=== PATIENT | female | born 1945 | race Hispanic/Latino ===

== ENCOUNTER → 2017-08-01 | Outpatient (CLI) | payer OTHER ==
[~2017-08-01] MED LIST: CALC-190 PO; FOLI1TAB15 PO; LEVO50TA11 PO; NAPR-1023 PO; PROLIA IM; SUPER B COMPLEX PO; THIAM100TB PO
== END | disposition home or self-care (01) ==
LOC: SHCH 14:07
PROVIDERS: ATTEND Internal Medicine Cardiovascular Disease
DX: I65.23 Occlusion and stenosis of bilateral carotid arteries (principal); I35.0 Nonrheumatic aortic (valve) stenosis
CPT/HCPCS: 93306; 93880

== ENCOUNTER → 2019-11-06 | Outpatient (CLI) | payer OTHER | END | disposition home or self-care (01) | LOC: RAH 09:33 | PROVIDERS: ATTEND Internal Medicine Critical Care Medicine | DX: M50.323 Other cervical disc degeneration at C6-C7 level (principal); M50.322 Other cervical disc degeneration at C5-C6 level | CPT/HCPCS: 72040 ==

== ENCOUNTER → 2022-12-30 | Outpatient (CLI) | payer OTHER | END | disposition home or self-care (01) | LOC: SHCH 12:58 | PROVIDERS: ATTEND Internal Medicine Cardiovascular Disease | DX: I35.0 Nonrheumatic aortic (valve) stenosis (principal); E78.5 Hyperlipidemia, unspecified | CPT/HCPCS: 93306 ==

== ENCOUNTER 2023-03-28 05:43 | Day surgery (SDC) | payer OTHER ==
[2023-03-25 09:55] LABS: BASOPHILS # (AUTO) 0.01 K/uL (0.00-0.20); BASOPHILS % (AUTO) 0.3 % (0.0-5.0); EOSINOPHILS # (AUTO) 0.14 K/uL (0.00-0.70); EOSINOPHILS % (AUTO) 3.6 % (0.0-8.0); HEMATOCRIT 32.4 % (36-48); IMMATURE GRANULOCYTE ABSOLUTE 0.01 K/uL (0-1); LYMPHOCYTES # (AUTO) 1.1 K/uL (1.0-4.8); LYMPHOCYTES % (AUTO) 29.5 % (21.0-51.0); MEAN CORPUSCULAR HEMOGLOBIN 30.1 pg (27.0-33.0); MEAN CORPUSCULAR HGB CONC 33.3 g/dL (32.0-36.0); MEAN CORPUSCULAR VOLUME 90.3 fL (79-99); MONOCYTES # (AUTO) 0.4 K/uL (0.1-1.0); MONOCYTES % (AUTO) 10.3 % (3.0-13.0); NEUTROPHILS # (AUTO) 2.2 K/uL (1.8-7.7); PLATELET COUNT (AUTO) 268 K/uL (130-400); RED BLOOD CELL COUNT(AUTO) 3.59 MIL/uL (4.00-5.50); RED CELL DISTRIBUTION WIDTH 14.2 % (11.0-15.5); WHITE BLOOD COUNT (AUTO) 3.9 K/uL (4.8-10.8)
[2023-03-25 10:01] LABS: CREATININE 0.9 mg/dL (0.5-1.5); POTASSIUM 4.4 mmol/L (3.5-5.1)
[2023-03-25 10:15] LABS: APPEARANCE,URINE CLEAR (CLEAR); BILIRUBIN,URINE NEGATIVE (NEGATIVE); COLOR,URINE COLORLESS (YELLOW); GLUCOSE, URINE (UA) NEGATIVE (NEGATIVE); KETONES,URINE NEGATIVE (NEGATIVE); LEUKOCYTE ESTERASE ,URINE NEGATIVE Leu/uL (NEGATIVE); NITRATE,URINE NEGATIVE (NEGATIVE); OCCULT BLOOD,URINE NEGATIVE (NEGATIVE); PH,URINE 6.5 (5.0-8.0); PROTEIN,URINE NEGATIVE (NEGATIVE); UROBILINOGEN,URINE 0.2 mg/dL (0.2-1.0)
[2023-03-25 10:18] LABS: INR < 0.93 (0.85-1.15); PROTHROMBIN TIME 10.6 SEC (9.6-11.6)
[2023-03-25 10:19] LABS: PARTIAL THROMBOPLASTIN TIME 28.8 SEC (26.3-35.5)
[2023-03-25 10:22] VITALS: BP 151/76; PULSE 52; RESP 18
[2023-03-25 10:25] LABS: B-TYPE NATRIURETIC PEPTIDE 50 pg/mL (0-100)
[2023-03-25 10:30] LABS: ADD UA MICROSCOPIC NO
[~2023-03-28] VITALS: Ht 162.6 cm; Wt 63.5 kg
[2023-03-28] VITALS (20 sets, daily range): BP systolic 111–152; BP diastolic 41–78; PULSE 58–72; RESP 10–22
[~2023-03-28 05:43] MED LIST changes: +ASPI-1005 PO; +BACL10TA PO; -CALC-190 PO; +EZET10TA48 PO; -FOLI1TAB15 PO; +GABA-529 PO; +IBUP-2077 PO; +IRON1CAP32 PO; +KRIL500C PO; -LEVO50TA11 PO; +LEVO75CA5 PO; +LOSA100T59 PO; +METO-408 PO; -NAPR-1023 PO; -PROLIA IM; -SUPER B COMPLEX PO; -THIAM100TB PO; +VITAMIN K PO; +[UNRECOGNIZED DRUG - OTHER] PO
[2023-03-28] MEDS ORDERED: 0.9%NACL 1000ML 1,000 ML IV ONE (06:16)
[2023-03-28] MEDS ORDERED: LIDOCAINE HCL 400MG/20ML VIAL ONE (07:04)
[2023-03-28] MEDS ORDERED: FENTANYL CITRATE PF 50 MCG/1 ML 2ML VIAL ONE (07:04)
[2023-03-28] MEDS ORDERED: IOHEXOL 350 MG/ML 100ML INFUS..BTL IV ONE (07:05)
[2023-03-28] MEDS ORDERED: MIDAZOLAM HCL 1 MG/ML 2ML VIAL ONE (07:05)
[2023-03-28] MEDS ORDERED: NITROGLYCERIN 50MG/D5W 250ML 1 BOT ONE (07:05)
[2023-03-28] MEDS ORDERED: 0.9%NACL 1000ML 1,000 ML IV SCH (08:00)
[2023-03-28] MEDS ORDERED: DEXTROSE 50%-WATER 50 ML DISP.SYRIN IV PRN (08:00)
[2023-03-28] MEDS ORDERED: ACETAMINOPHEN WITH CODEINE 1 TAB TAB PO PRN ×2 (08:00)
[2023-03-28] MEDS ORDERED: GLUCAGON 1MG KIT 1 MG ML IM PRN (08:00)
[2023-03-28] MEDS ORDERED: ATROPINE 1MG SYG IVP ONE (08:26)
[2023-04-07] MEDS ORDERED: [UNRECOGNIZED DRUG - OTHER] PO (14:19)
[2023-04-07] MEDS ORDERED: VITAMIN PO (14:19)
== END 2023-03-28 12:10 | disposition home or self-care (01) ==
LOC: DAH 05:43
PROVIDERS: ATTEND Internal Medicine Cardiovascular Disease
DX: I25.119 Atherosclerotic heart disease of native coronary artery with unspecified angina pectoris (principal); I11.0 Hypertensive heart disease with heart failure; I50.32 Chronic diastolic (congestive) heart failure; M19.90 Unspecified osteoarthritis, unspecified site; E03.9 Hypothyroidism, unspecified; Z79.899 Other long term (current) drug therapy; Z79.01 Long term (current) use of anticoagulants
CPT/HCPCS: 80048; 83880; 85025; 85610; 85730; 81003; 36415; 71045; 93005; 93458; C1894 ×2; J3010; J3490 ×2; J7030; J2250; J1644; Q9967; A4215; A6402; A4657; A4335; A4222; A4221; A4663; A4216; A4606; Q9965; A4223 ×3; A4554; 96360; 96361; 99156; 99157; J0461

== ENCOUNTER 2023-04-07 16:00 | Inpatient (IN) | payer OTHER ==
[~2023-04-07] VITALS: Ht 165.1 cm; Wt 63.5 kg
[2023-04-07 13:40] VITALS: BP 144/66; PULSE 58; RESP 20
[2023-04-07 14:59] LABS: ABG HCO3 23.5 mmol/L (21.0-28.0); ABG OXYGEN SATURATION 96.4 % (95.0-99.0); ABG PCO2 39 mmHg (32-45); ABG PH 7.402 (7.35-7.450); DEVICE COMMENT RAM RN RR; PO2, ARTERIAL BG 84.5 mmHg (83.0-108.0); VENT MODE, BG RA (ROOM AIR)
[~2023-04-07 16:00] MED LIST changes: -IBUP-2077 PO; -KRIL500C PO; +VITAMIN PO; +[UNRECOGNIZED DRUG - OTHER] PO
[2023-04-07 23:23] LABS: ALBUMIN 3.6 g/dL (3.5-5.0); BILIRUBIN,TOTAL 0.4 mg/dL (0.2-1.0); CREATININE 0.9 mg/dL (0.5-1.5); POTASSIUM 3.9 mmol/L (3.5-5.1); TOTAL PROTEIN, SERUM 7.1 g/dL (6.0-8.3)
[2023-04-08] VITALS (50 sets, daily range): BP systolic 96–184; BP diastolic 42–201; PULSE 65–106; RESP 10–19; TEMP 94.4–97.5; O2SAT 100
[2023-04-08 00:51] LABS: HEMOGLOBIN A1C 5.5 % (4.0-6.0)
[2023-04-08 02:15] LABS: INR 0.94 (0.85-1.15); PARTIAL THROMBOPLASTIN TIME 29.2 SEC (26.3-35.5); PROTHROMBIN TIME 10.9 SEC (9.6-11.6)
[2023-04-08 02:31] LABS: BASOPHILS # (AUTO) 0.02 K/uL (0.00-0.20); BASOPHILS % (AUTO) 0.3 % (0.0-5.0); EOSINOPHILS # (AUTO) 0.08 K/uL (0.00-0.70); EOSINOPHILS % (AUTO) 1.4 % (0.0-8.0); HEMATOCRIT 32.7 % (36-48); IMMATURE GRANULOCYTE ABSOLUTE 0.02 K/uL (0-1); LYMPHOCYTES # (AUTO) 1.2 K/uL (1.0-4.8); LYMPHOCYTES % (AUTO) 21.4 % (21.0-51.0); MEAN CORPUSCULAR HEMOGLOBIN 30.3 pg (27.0-33.0); MEAN CORPUSCULAR HGB CONC 32.7 g/dL (32.0-36.0); MEAN CORPUSCULAR VOLUME 92.6 fL (79-99); MONOCYTES # (AUTO) 0.4 K/uL (0.1-1.0); MONOCYTES % (AUTO) 7.4 % (3.0-13.0); NEUTROPHILS % (AUTO) 69.2 % (40.0-77.0); PLATELET COUNT (AUTO) 263 K/uL (130-400); RED BLOOD CELL COUNT(AUTO) 3.53 MIL/uL (4.00-5.50); RED CELL DISTRIBUTION WIDTH 14.7 % (11.0-15.5); WHITE BLOOD COUNT (AUTO) 5.8 K/uL (4.8-10.8)
[2023-04-08] MEDS ORDERED: EPINEPHRINE PF 1MG (1:1,000) 10 MG in 0.9% NACL 250ML 240 ML IV PRN ×2 (09:30→14:00)
[2023-04-08] MEDS ORDERED: NOREPINEPHRINE BITARTRATE 8 MG in 0.9% NACL 250ML 250 ML IV PRN ×2 (09:30→14:00)
[2023-04-08] MEDS ORDERED: AMINOCAPROIC ACID 5,000MG VIAL 15,000 MG in 0.9% NACL 500ML IV.SOLN 420 ML IV PRN (09:30)
[2023-04-08] MEDS ORDERED: 0.9%NACL 1000ML 1,000 ML IV ONE (09:50)
[2023-04-08] MEDS ORDERED: CEFAZOLIN SODIUM 2 GM VIAL ONE (09:50)
[2023-04-08] MEDS ORDERED: EPINEPHRINE PF 1MG (1:1,000) 1 MG/ML AMP ONE (12:03)
[2023-04-08] MEDS ORDERED: PROPOFOL 10 MG/ML 20ML VIAL IV ONE (12:03)
[2023-04-08] MEDS ORDERED: AMINOCAPROIC ACID 5,000MG VIAL ONE (12:03)
[2023-04-08] MEDS ORDERED: HEPARIN 10,000 UNIT/10ML (1,000 UNIT/ML) VIAL ONE (12:03)
[2023-04-08] MEDS ORDERED: NOREPINEPHRINE BITARTRATE 1 MG/1 ML ML IV ONE (12:03)
[2023-04-08] MEDS ORDERED: LIDOCAINE PF 100MG/5ML (2%) SYRINGE 5ML ONE (12:03)
[2023-04-08] MEDS ORDERED: PROTAMINE SULFATE 10 MG/ML 25ML VIAL IV ONE (12:03)
[2023-04-08] MEDS ORDERED: ESMOLOL HCL 10 MG/ML 10 ML VIAL ONE (12:03)
[2023-04-08] MEDS ORDERED: MIDAZOLAM HCL 1 MG/ML 2ML VIAL ONE ×2 (12:04→17:02)
[2023-04-08] MEDS ORDERED: ROCURONIUM 10MG/1ML SYR 10 MG/ML ML ONE (12:04)
[2023-04-08] MEDS ORDERED: KETAMINE 50MG/ML SYRINGE 50 MG/ML DISP.SYRIN ONE ×2 (12:04→14:15)
[2023-04-08] MEDS ORDERED: AMIODARONE 150MG VIAL IV ONE (13:02)
[2023-04-08] MEDS ORDERED: EPINEPHRINE 1MG/10ML(1:10,000) 0.1 MG/ML SYG IVP ONE (13:02)
[2023-04-08] MEDS ORDERED: FENTANYL CITRATE PF 50 MCG/1 ML 5ML AMP IV ONE ×3 (13:21→15:05)
[2023-04-08] MEDS ORDERED: SODIUM BICARB 8.4% 50ML SYRINGE ONE ×2 (13:23→13:49)
[2023-04-08 13:24] LABS: ABG BASE EXCESS -5.1 mmol/L (-2.0-3.0); ABG HCO3 21.8 mmol/L (21.0-28.0); ABG OXYGEN SATURATION 99.7 % (95.0-99.0); ABG PCO2 48 mmHg (32-45); ABG PH 7.273 (7.35-7.450); CARBON MONOXIDE 0.3; DEVICE COMMENT 1; HHb 0.3; PO2, ARTERIAL BG 467.6 mmHg (83.0-108.0)
[2023-04-08] MEDS ORDERED: CEFAZOLIN SODIUM 1 GM VIAL ONE (13:39)
[2023-04-08] MEDS ORDERED: PAPAVERINE HCL 30 MG/ML 2ML VIAL ONE (13:39)
[2023-04-08] MEDS ORDERED: FENTANYL CITRATE PF 50 MCG/1 ML 2ML VIAL ONE (13:59)
[2023-04-08] MEDS ORDERED: AMINOCAPROIC ACID 5,000MG VIAL 15,000 MG in 0.9% NACL 250ML 250 ML IV SCH (14:00)
[2023-04-08] MEDS ORDERED: ALBUMIN (HUMAN) 5% 250 ML IV PRN (14:00)
[2023-04-08] MEDS ORDERED: LACTULOSE 20 GM/30 ML UDCUP PO PRN (14:00)
[2023-04-08] MEDS ORDERED: MAGNESIUM HYDROXIDE 30 ML/UDCUP PO PRN (14:00)
[2023-04-08] MEDS ORDERED: 0.9%NACL 10ML VIAL IVP PRN (14:00)
[2023-04-08] MEDS ORDERED: INSULIN REGULAR, HUMAN 3ML 100 UNIT in 0.9%NACL 100ML 99 ML IV SCH ×2 (14:00)
[2023-04-08] MEDS ORDERED: MORPHINE 4 MG SYG IV PRN (14:00)
[2023-04-08] MEDS ORDERED: 0.9%NACL 1000ML 1,000 ML IV SCH (14:00)
[2023-04-08] MEDS ORDERED: TRAMADOL HCL 50 MG TABLET PO PRN ×2 (14:00)
[2023-04-08] MEDS ORDERED: PROPOFOL 1000 MG/100 ML 100 ML IV PRN (14:00)
[2023-04-08] MEDS ORDERED: 0.9% NACL 500ML IV.SOLN 500 ML IV SCH (14:00)
[2023-04-08] MEDS ORDERED: MORPHINE 2 MG SYG IV PRN (14:00)
[2023-04-08] MEDS ORDERED: NITROGLYCERIN 50MG/D5W 250ML 250 BOT IV SCH (14:00)
[2023-04-08] MEDS ORDERED: GLUCAGON 1MG KIT 1 MG ML IM PRN (14:00)
[2023-04-08] MEDS ORDERED: POTASSIUM PHOS 15 mMOL+NS250ML 250 ML IV PRN (14:00)
[2023-04-08] MEDS ORDERED: ACETAMINOPHEN 650 MG SUPPOSITORY RC PRN (14:00)
[2023-04-08] MEDS ORDERED: DEXTROSE 50%-WATER 50 ML DISP.SYRIN IV PRN (14:00)
[2023-04-08 15:00] LABS: ABG BASE EXCESS -0.3 mmol/L (-2.0-3.0); ABG HCO3 23.4 mmol/L (21.0-28.0); ABG OXYGEN SATURATION 99.5 % (95.0-99.0); ABG PCO2 34 mmHg (32-45); ABG PH 7.451 (7.35-7.450); CARBON MONOXIDE 0.3; DEVICE COMMENT 4; HHb 0.5; PO2, ARTERIAL BG 310.7 mmHg (83.0-108.0)
[2023-04-08] MEDS ORDERED: POTASSIUM CHLORIDE 20MEQ/100ML 100 ML IV ONE (15:04)
[2023-04-08 15:28] LABS: ABG BASE EXCESS -1.9 mmol/L (-2.0-3.0); ABG OXYGEN SATURATION 99.1 % (95.0-99.0); ABG PCO2 40 mmHg (32-45); ABG PH 7.379 (7.35-7.450); CARBON MONOXIDE 0; HHb 0.9; PO2, ARTERIAL BG 286.4 mmHg (83.0-108.0); VENT MODE, BG SIMV PS 10 (ROOM AIR)
[2023-04-08] MEDS: POTASSIUM CHLORIDE 20MEQ/100ML 100 ML IV PRN ×5 (15:38→23:50)
[2023-04-08 15:39] LABS: HEMATOCRIT 28.3 % (36-48); MEAN CORPUSCULAR HEMOGLOBIN 30.4 pg (27.0-33.0); MEAN CORPUSCULAR HGB CONC 33.6 g/dL (32.0-36.0); MEAN CORPUSCULAR VOLUME 90.7 fL (79-99); RED BLOOD CELL COUNT(AUTO) 3.12 MIL/uL (4.00-5.50); RED CELL DISTRIBUTION WIDTH 14.6 % (11.0-15.5); WHITE BLOOD COUNT (AUTO) 19.8 K/uL (4.8-10.8)
[2023-04-08] MEDS: SODIUM BICARB 50MEQ 50ML VIAL IV PRN ×4 (15:39→21:30)
[2023-04-08 15:52] LABS: CREATININE 0.7 mg/dL (0.5-1.5); MAGNESIUM 1.4 mg/dL (1.80-2.40); PHOSPHORUS 3.6 mg/dL (2.5-4.9); POTASSIUM 3.2 mmol/L (3.5-5.1)
[2023-04-08 15:53] LABS: ABG BASE EXCESS -0.5 mmol/L (-2.0-3.0); ABG HCO3 22.6 mmol/L (21.0-28.0); ABG OXYGEN SATURATION 99.1 % (95.0-99.0); ABG PCO2 32 mmHg (32-45); ABG PH 7.472 (7.35-7.450); CARBON MONOXIDE 0.3; HHb 0.9; PO2, ARTERIAL BG 355.3 mmHg (83.0-108.0); VENT MODE, BG SIMV (ROOM AIR)
[2023-04-08 15:59] LABS: INR 1.06 (0.85-1.15); PROTHROMBIN TIME 12.3 SEC (9.6-11.6)
[2023-04-08] MEDS ORDERED: AMIODARONE 900MG VIAL 540 MG in DEXTROSE 5%-WATER 300 ML IV STA (16:00)
[2023-04-08] MEDS ORDERED: AMIODARONE 900MG VIAL 150 MG in DEXTROSE 5%-WATER 100 ML IV SCH (16:00)
[2023-04-08] MEDS ORDERED: ASPIRIN 81MG CHEW TAB NG ONE (16:00)
[2023-04-08] MEDS ORDERED: AMIODARONE 900MG VIAL 360 MG in DEXTROSE 5%-WATER 200 ML IV SCH (16:00)
[2023-04-08 16:01] LABS: PARTIAL THROMBOPLASTIN TIME 24.6 SEC (26.3-35.5)
[2023-04-08] MEDS: MAGNESIUM 2GM PREMIX 50ML 50 ML IV PRN ×2 (16:31→23:50)
[2023-04-08 16:33] LABS: HEMATOCRIT 24.7 % (36-48); MEAN CORPUSCULAR HEMOGLOBIN 30.7 pg (27.0-33.0); MEAN CORPUSCULAR HGB CONC 33.6 g/dL (32.0-36.0); MEAN CORPUSCULAR VOLUME 91.5 fL (79-99); RED BLOOD CELL COUNT(AUTO) 2.7 MIL/uL (4.00-5.50); RED CELL DISTRIBUTION WIDTH 14.7 % (11.0-15.5); WHITE BLOOD COUNT (AUTO) 17.7 K/uL (4.8-10.8)
[2023-04-08 16:44] LABS: INR 1.13 (0.85-1.15)
[2023-04-08 16:45] LABS: PARTIAL THROMBOPLASTIN TIME 25.6 SEC (26.3-35.5)
[2023-04-08 16:48] LABS: POTASSIUM 3.8 mmol/L (3.5-5.1)
[2023-04-08 16:49] LABS: ABG BASE EXCESS -5.5 mmol/L (-2.0-3.0); ABG HCO3 19.6 mmol/L (21.0-28.0); ABG OXYGEN SATURATION 98.4 % (95.0-99.0); ABG PCO2 37 mmHg (32-45); ABG PH 7.345 (7.35-7.450); CARBON MONOXIDE 0.1; HHb 1.6; PO2, ARTERIAL BG 230.3 mmHg (83.0-108.0)
[2023-04-08 16:53] LABS: ALBUMIN 2.3 g/dL (3.5-5.0); BILIRUBIN,TOTAL 0.5 mg/dL (0.2-1.0); TOTAL PROTEIN, SERUM 4.7 g/dL (6.0-8.3)
[2023-04-08] MEDS: LIDOCAINE 2G/250ML 250 ML IV SCH (17:02)
[2023-04-08] MEDS ORDERED: MIDAZOLAM HCL 1 MG/ML 2ML VIAL IVP ONE (17:30)
[2023-04-08 18:32] LABS: ABG BASE EXCESS 1.2 mmol/L (-2.0-3.0); ABG HCO3 25.3 mmol/L (21.0-28.0); ABG OXYGEN SATURATION 98.7 % (95.0-99.0); ABG PCO2 38 mmHg (32-45); ABG PH 7.443 (7.35-7.450); CARBON MONOXIDE 0.3; HHb 1.3; PO2, ARTERIAL BG 260.3 mmHg (83.0-108.0); VENT MODE, BG AC (ROOM AIR)
[2023-04-08 19:43] LABS: ABG BASE EXCESS 0.5 mmol/L (-2.0-3.0); ABG HCO3 24.8 mmol/L (21.0-28.0); ABG OXYGEN SATURATION 99.1 % (95.0-99.0); ABG PCO2 39 mmHg (32-45); ABG PH 7.425 (7.35-7.450); CARBON MONOXIDE 0.3; HHb 0.9; PO2, ARTERIAL BG 425.3 mmHg (83.0-108.0); VENT MODE, BG AC (ROOM AIR)
[2023-04-08] MEDS: CEFAZOLIN SODIUM 2 GM VIAL IVPB SCH (19:44)
[2023-04-08] MEDS: DEXMEDETOMIDINE 400MCG/NS100ML IV SCH (19:45)
[2023-04-08] MEDS: ATORVASTATIN 40 MG TABLET PO SCH (20:54)
[2023-04-08] MEDS: DOCUSATE SODIUM 100 MG CAP PO SCH (20:54)
[2023-04-08] MEDS: FAMOTIDINE 20MG VIAL IV SCH (20:54)
[2023-04-08 21:04] LABS: ABG BASE EXCESS -1.4 mmol/L (-2.0-3.0); ABG HCO3 23.4 mmol/L (21.0-28.0); ABG OXYGEN SATURATION 98.8 % (95.0-99.0); ABG PCO2 39 mmHg (32-45); ABG PH 7.393 (7.35-7.450); CARBON MONOXIDE 0.3; HHb 1.2; PO2, ARTERIAL BG 243.9 mmHg (83.0-108.0); VENT MODE, BG ACVC (ROOM AIR)
[2023-04-08 23:23] LABS: ABG BASE EXCESS 3.8 mmol/L (-2.0-3.0); ABG HCO3 27.5 mmol/L (21.0-28.0); ABG OXYGEN SATURATION 97.8 % (95.0-99.0); ABG PCO2 38 mmHg (32-45); ABG PH 7.479 (7.35-7.450); CARBON MONOXIDE 0.3; HHb 2.2; PO2, ARTERIAL BG 118.6 mmHg (83.0-108.0); VENT MODE, BG AC (ROOM AIR)
[2023-04-09] VITALS (118 sets, daily range): BP systolic 94–177; BP diastolic 34–93; PULSE 55–75; RESP 8–42; TEMP 97.7–98.1; O2SAT 88–100
[2023-04-09] MEDS: DEXMEDETOMIDINE 400MCG/NS100ML IV SCH ×2 (00:06→18:47)
[2023-04-09 02:27] LABS: ABG BASE EXCESS 5.2 mmol/L (-2.0-3.0); ABG HCO3 27.6 mmol/L (21.0-28.0); ABG OXYGEN SATURATION 98.2 % (95.0-99.0); ABG PCO2 33 mmHg (32-45); ABG PH 7.545 (7.35-7.450); CARBON MONOXIDE 0.3; HHb 1.8; PO2, ARTERIAL BG 154.6 mmHg (83.0-108.0); VENT MODE, BG ACVC (ROOM AIR)
[2023-04-09] MEDS: LIDOCAINE 2G/250ML 250 ML IV SCH ×2 (03:15→20:14)
[2023-04-09] MEDS: CEFAZOLIN SODIUM 2 GM VIAL IVPB SCH ×2 (03:16→12:29)
[2023-04-09 03:27] LABS: HEMATOCRIT 27.1 % (36-48); MEAN CORPUSCULAR HEMOGLOBIN 30.8 pg (27.0-33.0); MEAN CORPUSCULAR HGB CONC 33.9 g/dL (32.0-36.0); MEAN CORPUSCULAR VOLUME 90.6 fL (79-99); RED BLOOD CELL COUNT(AUTO) 2.99 MIL/uL (4.00-5.50); RED CELL DISTRIBUTION WIDTH 14.6 % (11.0-15.5); WHITE BLOOD COUNT (AUTO) 14.8 K/uL (4.8-10.8)
[2023-04-09 03:40] LABS: INR 0.99 (0.85-1.15); PROTHROMBIN TIME 11.5 SEC (9.6-11.6)
[2023-04-09 03:41] LABS: PARTIAL THROMBOPLASTIN TIME 24.2 SEC (26.3-35.5)
[2023-04-09 04:07] LABS: ABG BASE EXCESS 4.3 mmol/L (-2.0-3.0); ABG HCO3 26.9 mmol/L (21.0-28.0); ABG OXYGEN SATURATION 98.2 % (95.0-99.0); ABG PCO2 33 mmHg (32-45); ABG PH 7.533 (7.35-7.450); CARBON MONOXIDE 0.3; HHb 1.8; PO2, ARTERIAL BG 148.8 mmHg (83.0-108.0); VENT MODE, BG ACVC (ROOM AIR)
[2023-04-09 04:14] LABS: MAGNESIUM 2.6 mg/dL (1.80-2.40); POTASSIUM 4.3 mmol/L (3.5-5.1)
[2023-04-09 04:39] LABS: PHOSPHORUS 0.9 mg/dL (2.5-4.9)
[2023-04-09] MEDS: CALCIUM GLUC 1GM 1 GM in 0.9%NACL 50ML 50 ML IV PRN ×2 (04:52→16:36)
[2023-04-09 05:16] LABS: ABG BASE EXCESS 1.4 mmol/L (-2.0-3.0); ABG OXYGEN SATURATION 98.1 % (95.0-99.0); ABG PCO2 31 mmHg (32-45); ABG PH 7.511 (7.35-7.450); CARBON MONOXIDE 0.2; HHb 1.9; PO2, ARTERIAL BG 127.8 mmHg (83.0-108.0); VENT MODE, BG AC (ROOM AIR)
[2023-04-09] MEDS: LEVOTHYROXINE 75 MCG TABLET PO SCH (07:24)
[2023-04-09] MEDS ORDERED: NON-FORMULARY MEDICATION 1 EACH (Levothyroxine Sodium (Levothyroxine) 75 MCG) PO SCH (09:00)
[2023-04-09] MEDS: FAMOTIDINE 20MG VIAL IV SCH ×2 (09:20→20:14)
[2023-04-09] MEDS: FUROSEMIDE 20MG VIAL IV SCH ×2 (09:20→20:15)
[2023-04-09] MEDS: DOCUSATE SODIUM 100 MG CAP PO SCH ×2 (09:20→20:10)
[2023-04-09] MEDS: ENOXAPARIN SODIUM 30 MG/0.3 ML SQ SCH (09:20)
[2023-04-09] MEDS: EZETIMIBE 10 MG TAB PO SCH (09:21)
[2023-04-09] MEDS: ASPIRIN 81MG CHEW TAB PO SCH (09:21)
[2023-04-09 12:18] LABS: ABG BASE EXCESS 1.8 mmol/L (-2.0-3.0); ABG HCO3 25.4 mmol/L (21.0-28.0); ABG OXYGEN SATURATION 94.6 % (95.0-99.0); ABG PCO2 36 mmHg (32-45); ABG PH 7.467 (7.35-7.450); CARBON MONOXIDE 0.3; HHb 5.4; PO2, ARTERIAL BG 76.6 mmHg (83.0-108.0); VENT MODE, BG SIMV PS 10 (ROOM AIR)
[2023-04-09] MEDS ORDERED: CEFAZOLIN SODIUM 2 GM VIAL ONE (12:28)
[2023-04-09] MEDS: POTASSIUM CHLORIDE 20MEQ/100ML 100 ML IV PRN (13:12)
[2023-04-09 13:59] LABS: ABG BASE EXCESS 3.5 mmol/L (-2.0-3.0); ABG HCO3 27.3 mmol/L (21.0-28.0); ABG OXYGEN SATURATION 92.8 % (95.0-99.0); ABG PCO2 38 mmHg (32-45); ABG PH 7.474 (7.35-7.450); CARBON MONOXIDE 0.2; HHb 7.1; PO2, ARTERIAL BG 68.2 mmHg (83.0-108.0); VENT MODE, BG SIMV PS 10 (ROOM AIR)
[2023-04-09 16:08] LABS: ABG BASE EXCESS 0.1 mmol/L (-2.0-3.0); ABG HCO3 24.3 mmol/L (21.0-28.0); ABG OXYGEN SATURATION 93.5 % (95.0-99.0); ABG PCO2 38 mmHg (32-45); ABG PH 7.426 (7.35-7.450); CARBON MONOXIDE 0.7; HHb 6.4; PO2, ARTERIAL BG 73.6 mmHg (83.0-108.0); VENT MODE, BG BIPAP 10-5 RR15 (ROOM AIR)
[2023-04-09] MEDS: ATORVASTATIN 40 MG TABLET PO SCH (20:10)
[2023-04-10] VITALS (84 sets, daily range): BP systolic 91–191; BP diastolic 37–97; PULSE 64–110; RESP 4–44; TEMP 98–98.7; O2SAT 93–99
[2023-04-10 05:43] LABS: HEMATOCRIT 27.5 % (36-48); MEAN CORPUSCULAR HGB CONC 33.8 g/dL (32.0-36.0); MEAN CORPUSCULAR VOLUME 91.7 fL (79-99); PLATELET COUNT (AUTO) 99 K/uL (130-400); RED CELL DISTRIBUTION WIDTH 15.6 % (11.0-15.5); WHITE BLOOD COUNT (AUTO) 15.4 K/uL (4.8-10.8)
[2023-04-10] MEDS: DEXMEDETOMIDINE 400MCG/NS100ML IV SCH ×2 (05:54→06:55)
[2023-04-10] MEDS: LEVOTHYROXINE 75 MCG TABLET PO SCH (05:55)
[2023-04-10] MEDS ORDERED: CALCIUM GLUC 1GM/10ML VIAL ONE (05:58)
[2023-04-10 06:14] LABS: CREATININE 1.3 mg/dL (0.5-1.5); PHOSPHORUS 4.5 mg/dL (2.5-4.9); POTASSIUM 3.8 mmol/L (3.5-5.1)
[2023-04-10] MEDS: POTASSIUM CHLORIDE 20MEQ/100ML 100 ML IV PRN (06:33)
[2023-04-10] MEDS: INSULIN HUMULIN R 100 UNIT/ML 3ML SQ SCH ×4 (07:30→20:25)
[2023-04-10] MEDS: METOPROLOL TARTRATE 25 MG TAB PO SCH ×2 (09:00→20:25)
[2023-04-10] MEDS: FAMOTIDINE 20MG VIAL IV SCH ×2 (09:08→20:25)
[2023-04-10] MEDS: EZETIMIBE 10 MG TAB PO SCH (09:09)
[2023-04-10] MEDS: DOCUSATE SODIUM 100 MG CAP PO SCH ×2 (09:09→20:25)
[2023-04-10] MEDS: ASPIRIN 81MG CHEW TAB PO SCH (09:09)
[2023-04-10] MEDS: ENOXAPARIN SODIUM 30 MG/0.3 ML SQ SCH (09:09)
[2023-04-10 11:38] LABS: BASOPHILS # (AUTO) 0.03 K/uL (0.00-0.20); BASOPHILS % (AUTO) 0.2 % (0.0-5.0); IMMATURE GRANULOCYTE ABSOLUTE 0.05 K/uL (0-1); LYMPHOCYTES # (AUTO) 1.4 K/uL (1.0-4.8); LYMPHOCYTES % (AUTO) 8.9 % (21.0-51.0); MONOCYTES # (AUTO) 0.9 K/uL (0.1-1.0); MONOCYTES % (AUTO) 5.6 % (3.0-13.0)
[2023-04-10 12:11] LABS: BAND NEUTROPHILS % (MANUAL) 35 % (0-2); LYMPHOCYTES % (MANUAL) 10 % (22-44); MAN.DIFF COMMENT-IMPRESSION MANUAL DIFFERENTIAL; MONOCYTES % (MANUAL) 2 % (2-9); PLATELET MORPHOLOGY COMMENT DECREASED; SEGMENTED NEUTROPHILS % 53 % (40-70); TOTAL CELLS COUNTED 100; WBC MORPHOLOGY CONSISTENT
[2023-04-10] MEDS: FUROSEMIDE 20 MG TABLET PO SCH (16:59)
[2023-04-10] MEDS: ATORVASTATIN 40 MG TABLET PO SCH (20:25)
[2023-04-11] VITALS (110 sets, daily range): BP systolic 40–175; BP diastolic 38–93; PULSE 62–113; RESP 13–100; TEMP 98.5–99.1; O2SAT 92–100
[2023-04-11 00:28] LABS: ABG BASE EXCESS 3.1 mmol/L (-2.0-3.0); ABG HCO3 25.6 mmol/L (21.0-28.0); ABG OXYGEN SATURATION 87.8 % (95.0-99.0); ABG PCO2 31 mmHg (32-45); CARBON MONOXIDE 0.4; HHb 12.1; PO2, ARTERIAL BG 50.8 mmHg (83.0-108.0); VENT MODE, BG AM (ROOM AIR)
[2023-04-11] MEDS: POTASSIUM CHLORIDE 20MEQ/100ML 100 ML IV PRN ×6 (00:37→23:33)
[2023-04-11 01:57] LABS: ABG BASE EXCESS 1.7 mmol/L (-2.0-3.0); ABG OXYGEN SATURATION 94.2 % (95.0-99.0); ABG PCO2 30 mmHg (32-45); ABG PH 7.529 (7.35-7.450); CARBON MONOXIDE 0.3; HHb 5.8; PO2, ARTERIAL BG 72.5 mmHg (83.0-108.0)
[2023-04-11 05:21] LABS: HEMATOCRIT 26.7 % (36-48); MEAN CORPUSCULAR HEMOGLOBIN 30.9 pg (27.0-33.0); MEAN CORPUSCULAR VOLUME 93.7 fL (79-99); RED BLOOD CELL COUNT(AUTO) 2.85 MIL/uL (4.00-5.50); WHITE BLOOD COUNT (AUTO) 13.8 K/uL (4.8-10.8)
[2023-04-11] MEDS: INSULIN HUMULIN R 100 UNIT/ML 3ML SQ SCH ×4 (05:25→23:30)
[2023-04-11 05:43] LABS: POTASSIUM 3.5 mmol/L (3.5-5.1)
[2023-04-11] MEDS: LEVOTHYROXINE 75 MCG TABLET PO SCH (05:55)
[2023-04-11] MEDS ORDERED: LIDOCAINE HCL 400MG/20ML VIAL ONE (07:00)
[2023-04-11] MEDS ORDERED: HEPARIN 10,000 UNIT/10ML (1,000 UNIT/ML) VIAL ONE (07:01)
[2023-04-11] MEDS ORDERED: IOHEXOL 350 MG/ML 100ML INFUS..BTL IV ONE (07:01)
[2023-04-11] MEDS ORDERED: NITROGLYCERIN 50MG/D5W 250ML 0 BOT ONE (07:01)
[2023-04-11] MEDS ORDERED: BIVALIRUDIN 250 MG/VIAL IV ONE (07:01)
[2023-04-11] MEDS ORDERED: METOPROLOL TARTRATE 1 MG/ML 5ML VIAL IV ONE ×2 (07:23→07:27)
[2023-04-11] MEDS: ENOXAPARIN SODIUM 30 MG/0.3 ML SQ SCH (08:23)
[2023-04-11] MEDS ORDERED: AMIODARONE 150MG VIAL IV ONE (08:30)
[2023-04-11] MEDS ORDERED: AMIODARONE 150MG VIAL 300 MG in DEXTROSE 5%-WATER 100 ML IV ONE (09:00)
[2023-04-11] MEDS: FUROSEMIDE 20 MG TABLET PO SCH ×2 (09:28→16:03)
[2023-04-11] MEDS: EZETIMIBE 10 MG TAB PO SCH (09:28)
[2023-04-11] MEDS: METOPROLOL TARTRATE 50 MG TAB PO SCH ×2 (09:28→20:15)
[2023-04-11] MEDS: DOCUSATE SODIUM 100 MG CAP PO SCH ×2 (09:28→20:15)
[2023-04-11] MEDS: FAMOTIDINE 20MG VIAL IV SCH ×2 (09:28→20:15)
[2023-04-11] MEDS: ASPIRIN 81MG CHEW TAB PO SCH (09:29)
[2023-04-11] MEDS ORDERED: FUROSEMIDE 40MG VIAL IV ONE (11:00)
[2023-04-11] MEDS: ATORVASTATIN 40 MG TABLET PO SCH (20:15)
[2023-04-11] MEDS: MAGNESIUM 2GM PREMIX 50ML 50 ML IV PRN (20:15)
[2023-04-11] MEDS: AMIODARONE 200 MG TABLET PO SCH (20:15)
[2023-04-11 23:28] LABS: POTASSIUM 2.3 mmol/L (3.5-5.1)
[2023-04-12] VITALS (91 sets, daily range): BP systolic 97–177; BP diastolic 38–90; PULSE 55–85; RESP 12–36; TEMP 100; O2SAT 95–99
[2023-04-12] MEDS: POTASSIUM CHLORIDE 20MEQ/100ML 100 ML IV PRN ×5 (00:30→13:17)
[2023-04-12 01:32] LABS: MAGNESIUM 2.3 mg/dL (1.80-2.40); POTASSIUM 3.8 mmol/L (3.5-5.1)
[2023-04-12 03:36] LABS: HEMATOCRIT 23.6 % (36-48); MEAN CORPUSCULAR HEMOGLOBIN 31.3 pg (27.0-33.0); MEAN CORPUSCULAR HGB CONC 33.9 g/dL (32.0-36.0); MEAN CORPUSCULAR VOLUME 92.2 fL (79-99); NUCLEATED RED BLOOD CELLS 0.2 % (0.0-0.19); RED BLOOD CELL COUNT(AUTO) 2.56 MIL/uL (4.00-5.50); RED CELL DISTRIBUTION WIDTH 15.9 % (11.0-15.5); WHITE BLOOD COUNT (AUTO) 16.1 K/uL (4.8-10.8)
[2023-04-12 03:48] LABS: POTASSIUM 3.8 mmol/L (3.5-5.1)
[2023-04-12 04:43] LABS: ABG BASE EXCESS 1.8 mmol/L (-2.0-3.0); ABG HCO3 25.2 mmol/L (21.0-28.0); ABG OXYGEN SATURATION 95.9 % (95.0-99.0); ABG PCO2 36 mmHg (32-45); ABG PH 7.463 (7.35-7.450); DEVICE COMMENT ALINE; PO2, ARTERIAL BG 75.6 mmHg (83.0-108.0); VENT MODE, BG BIPAP 10 5 (ROOM AIR)
[2023-04-12] MEDS: INSULIN HUMULIN R 100 UNIT/ML 3ML SQ SCH ×4 (06:09→20:19)
[2023-04-12] MEDS: LEVOTHYROXINE 75 MCG TABLET PO SCH (06:09)
[2023-04-12] MEDS: FUROSEMIDE 20 MG TABLET PO SCH ×2 (08:00→16:49)
[2023-04-12] MEDS: AMIODARONE 200 MG TABLET PO SCH ×2 (08:01→20:18)
[2023-04-12] MEDS: DOCUSATE SODIUM 100 MG CAP PO SCH ×2 (08:01→20:18)
[2023-04-12] MEDS: FAMOTIDINE 20MG VIAL IV SCH ×2 (08:01→20:18)
[2023-04-12] MEDS: EZETIMIBE 10 MG TAB PO SCH (08:01)
[2023-04-12] MEDS: ASPIRIN 81MG CHEW TAB PO SCH (08:01)
[2023-04-12] MEDS: ENOXAPARIN SODIUM 30 MG/0.3 ML SQ SCH (08:02)
[2023-04-12] MEDS: METOPROLOL TARTRATE 50 MG TAB PO SCH ×2 (08:04→21:53)
[2023-04-12] MEDS: LOSARTAN 25 MG TABLET PO SCH ×2 (08:04→20:18)
[2023-04-12] MEDS: ACETAMINOPHEN 325 MG TAB PO PRN (08:04)
[2023-04-12] MEDS: ONDANSETRON 4MG INJ IV PRN (11:06)
[2023-04-12] MEDS: ATORVASTATIN 40 MG TABLET PO SCH (20:18)
[2023-04-13] VITALS (32 sets, daily range): BP systolic 94–141; BP diastolic 37–67; PULSE 56–97; RESP 8–26; O2SAT 94–97
[2023-04-13 04:13] LABS: HEMATOCRIT 25.4 % (36-48); MEAN CORPUSCULAR HEMOGLOBIN 30.7 pg (27.0-33.0); MEAN CORPUSCULAR HGB CONC 32.3 g/dL (32.0-36.0); MEAN CORPUSCULAR VOLUME 95.1 fL (79-99); NUCLEATED RED BLOOD CELLS 0.3 % (0.0-0.19); RED BLOOD CELL COUNT(AUTO) 2.67 MIL/uL (4.00-5.50); RED CELL DISTRIBUTION WIDTH 15.2 % (11.0-15.5); WHITE BLOOD COUNT (AUTO) 11.6 K/uL (4.8-10.8)
[2023-04-13 04:28] LABS: CREATININE 1.1 mg/dL (0.5-1.5)
[2023-04-13] MEDS: POTASSIUM CHLORIDE 20MEQ/100ML 100 ML IV PRN (04:47)
[2023-04-13] MEDS: LEVOTHYROXINE 75 MCG TABLET PO SCH (06:07)
[2023-04-13] MEDS: INSULIN HUMULIN R 100 UNIT/ML 3ML SQ SCH ×4 (06:49→19:52)
[2023-04-13] MEDS: ASPIRIN 81MG CHEW TAB PO SCH (08:01)
[2023-04-13] MEDS: AMIODARONE 200 MG TABLET PO SCH ×2 (08:01→19:47)
[2023-04-13] MEDS: DOCUSATE SODIUM 100 MG CAP PO SCH (08:01)
[2023-04-13] MEDS: FUROSEMIDE 20 MG TABLET PO SCH ×2 (08:02→17:29)
[2023-04-13] MEDS: EZETIMIBE 10 MG TAB PO SCH (08:02)
[2023-04-13] MEDS: FAMOTIDINE 20MG TAB PO SCH (08:02)
[2023-04-13] MEDS: ENOXAPARIN SODIUM 30 MG/0.3 ML SQ SCH (08:03)
[2023-04-13] MEDS: LOSARTAN 25 MG TABLET PO SCH ×2 (08:43→19:47)
[2023-04-13] MEDS: METOPROLOL TARTRATE 50 MG TAB PO SCH ×2 (09:00→19:47)
[2023-04-13] MEDS ORDERED: FUROSEMIDE 40MG VIAL IV ONE (10:00)
[2023-04-13] MEDS: ATORVASTATIN 40 MG TABLET PO SCH (19:47)
[2023-04-13] MEDS: ACETAMINOPHEN 325 MG TAB PO PRN (19:50)
[2023-04-14] VITALS (13 sets, daily range): BP systolic 93–148; BP diastolic 46–68; PULSE 57–75; RESP 16–20; O2SAT 91–97
[2023-04-14] MEDS: LEVOTHYROXINE 75 MCG TABLET PO SCH (05:00)
[2023-04-14] MEDS: INSULIN HUMULIN R 100 UNIT/ML 3ML SQ SCH ×4 (05:44→21:00)
[2023-04-14] MEDS: ENOXAPARIN SODIUM 30 MG/0.3 ML SQ SCH (09:00)
[2023-04-14] MEDS: FUROSEMIDE 20 MG TABLET PO SCH ×2 (09:00→16:33)
[2023-04-14] MEDS: AMIODARONE 200 MG TABLET PO SCH ×2 (09:00→22:02)
[2023-04-14] MEDS: LOSARTAN 25 MG TABLET PO SCH ×2 (09:01→22:02)
[2023-04-14] MEDS: ACETAMINOPHEN 325 MG TAB PO PRN ×2 (09:02→16:32)
[2023-04-14] MEDS: METOPROLOL TARTRATE 50 MG TAB PO SCH ×2 (09:02→22:09)
[2023-04-14] MEDS: EZETIMIBE 10 MG TAB PO SCH (09:02)
[2023-04-14] MEDS: FAMOTIDINE 20MG TAB PO SCH (09:02)
[2023-04-14] MEDS: ASPIRIN 81MG CHEW TAB PO SCH (09:02)
[2023-04-14] MEDS: ATORVASTATIN 40 MG TABLET PO SCH (22:02)
[2023-04-14] MEDS: ACETAMINOPHEN 500 MG TABLET PO SCH (22:04)
[2023-04-14] MEDS: ALPRAZOLAM 1 MG TAB PO SCH (22:04)
[2023-04-14] MEDS: BALSAM PERU/CASTOR OIL 60 GM TUBE TP SCH (22:08)
[2023-04-15] VITALS (10 sets, daily range): BP systolic 92–127; BP diastolic 43–54; PULSE 58–70; RESP 18–20; O2SAT 92–99
[2023-04-15] MEDS: INSULIN HUMULIN R 100 UNIT/ML 3ML SQ SCH ×4 (05:48→20:43)
[2023-04-15] MEDS: LEVOTHYROXINE 75 MCG TABLET PO SCH (06:53)
[2023-04-15] MEDS: AMIODARONE 200 MG TABLET PO SCH ×2 (09:41→20:51)
[2023-04-15] MEDS: EZETIMIBE 10 MG TAB PO SCH (09:41)
[2023-04-15] MEDS: ALPRAZOLAM 1 MG TAB PO SCH (09:41)
[2023-04-15] MEDS: FAMOTIDINE 20MG TAB PO SCH (09:41)
[2023-04-15] MEDS: CLOPIDOGREL 75MG TAB PO SCH (09:42)
[2023-04-15] MEDS: FUROSEMIDE 20 MG TABLET PO SCH ×2 (09:42→16:57)
[2023-04-15] MEDS: ACETAMINOPHEN 500 MG TABLET PO SCH ×2 (09:42→20:52)
[2023-04-15] MEDS: METOPROLOL TARTRATE 50 MG TAB PO SCH ×2 (09:43→20:54)
[2023-04-15] MEDS: ASPIRIN 81MG CHEW TAB PO SCH (09:43)
[2023-04-15] MEDS: LOSARTAN 25 MG TABLET PO SCH ×2 (09:43→20:53)
[2023-04-15] MEDS: ENOXAPARIN SODIUM 30 MG/0.3 ML SQ SCH (09:45)
[2023-04-15] MEDS: BALSAM PERU/CASTOR OIL 60 GM TUBE TP SCH ×3 (10:00→20:56)
[2023-04-15] MEDS: ATORVASTATIN 40 MG TABLET PO SCH (20:53)
[2023-04-15] MEDS ORDERED: ALPRAZOLAM 1 MG TAB PO SCH (21:00)
[2023-04-16] VITALS (10 sets, daily range): BP systolic 93–117; BP diastolic 41–54; PULSE 54–90; RESP 16–18; O2SAT 93–94
[2023-04-16 03:56] LABS: BASOPHILS # (AUTO) 0.03 K/uL (0.00-0.20); BASOPHILS % (AUTO) 0.2 % (0.0-5.0); EOSINOPHILS # (AUTO) 0.34 K/uL (0.00-0.70); EOSINOPHILS % (AUTO) 2.7 % (0.0-8.0); HEMATOCRIT 23.9 % (36-48); IMMATURE GRANULOCYTE ABSOLUTE 0.14 K/uL (0-1); LYMPHOCYTES # (AUTO) 1.7 K/uL (1.0-4.8); LYMPHOCYTES % (AUTO) 13.2 % (21.0-51.0); MEAN CORPUSCULAR HEMOGLOBIN 30.8 pg (27.0-33.0); MEAN CORPUSCULAR HGB CONC 33.5 g/dL (32.0-36.0); MEAN CORPUSCULAR VOLUME 91.9 fL (79-99); MONOCYTES # (AUTO) 1.1 K/uL (0.1-1.0); MONOCYTES % (AUTO) 8.7 % (3.0-13.0); NEUTROPHILS # (AUTO) 9.4 K/uL (1.8-7.7); NEUTROPHILS % (AUTO) 74.1 % (40.0-77.0); NUCLEATED RED BLOOD CELLS 0.2 % (0.0-0.19); PLATELET COUNT (AUTO) 206 K/uL (130-400); RED CELL DISTRIBUTION WIDTH 15.2 % (11.0-15.5); WHITE BLOOD COUNT (AUTO) 12.7 K/uL (4.8-10.8)
[2023-04-16 04:07] LABS: CREATININE 1.1 mg/dL (0.5-1.5); MAGNESIUM 1.5 mg/dL (1.80-2.40)
[2023-04-16 04:12] LABS: POTASSIUM 2.4 mmol/L (3.5-5.1)
[2023-04-16] MEDS ORDERED: POTASSIUM CHLORIDE 10MEQ/100ML IV ONE (05:00)
[2023-04-16] MEDS: LEVOTHYROXINE 75 MCG TABLET PO SCH (05:38)
[2023-04-16] MEDS: INSULIN HUMULIN R 100 UNIT/ML 3ML SQ SCH ×4 (06:22→20:43)
[2023-04-16] MEDS: AMIODARONE 200 MG TABLET PO SCH ×2 (08:54→20:54)
[2023-04-16] MEDS: ASPIRIN 81MG CHEW TAB PO SCH (08:54)
[2023-04-16] MEDS: ACETAMINOPHEN 500 MG TABLET PO SCH ×2 (08:55→20:55)
[2023-04-16] MEDS: LOSARTAN 25 MG TABLET PO SCH ×2 (08:55→20:55)
[2023-04-16] MEDS: FAMOTIDINE 20MG TAB PO SCH (08:55)
[2023-04-16] MEDS: CLOPIDOGREL 75MG TAB PO SCH (08:56)
[2023-04-16] MEDS: ENOXAPARIN SODIUM 30 MG/0.3 ML SQ SCH (08:56)
[2023-04-16] MEDS: METOPROLOL TARTRATE 50 MG TAB PO SCH ×2 (08:56→20:54)
[2023-04-16] MEDS: EZETIMIBE 10 MG TAB PO SCH (08:56)
[2023-04-16] MEDS: FUROSEMIDE 20 MG TABLET PO SCH ×2 (08:56→17:32)
[2023-04-16] MEDS: BALSAM PERU/CASTOR OIL 60 GM TUBE TP SCH ×3 (08:57→20:56)
[2023-04-16] MEDS: MAGNESIUM 2GM PREMIX 50ML 50 ML IV PRN (09:02)
[2023-04-16] MEDS ORDERED: KCL 20 MEQ ERTAB PO PRN (11:30)
[2023-04-16] MEDS ORDERED: POTASSIUM CHLORIDE 20MEQ/100ML 100 ML IV PRN (11:30)
[2023-04-16] MEDS ORDERED: FUROSEMIDE 20 MG TABLET PO ONE (13:00)
[2023-04-16] MEDS ORDERED: MAGNESIUM OXIDE 400 MG TABLET PO ONE (13:00)
[2023-04-16] MEDS ORDERED: KCL 20 MEQ ERTAB PO ONE (13:00)
[2023-04-16] MEDS: POTASSIUM CHLORIDE 10% ELIXIR 20 MEQ/15 ML UDCUP PO PRN ×4 (13:13→23:39)
[2023-04-16 15:28] LABS: MAGNESIUM 2.3 mg/dL (1.80-2.40)
[2023-04-16 15:29] LABS: POTASSIUM 2.8 mmol/L (3.5-5.1)
[2023-04-16] MEDS: ATORVASTATIN 40 MG TABLET PO SCH (20:55)
[2023-04-16] MEDS ORDERED: ALPRAZOLAM 0.5 MG TABLET PO SCH (21:00)
[2023-04-17] VITALS (13 sets, daily range): BP systolic 72–122; BP diastolic 40–61; PULSE 59–68; RESP 16–20; O2SAT 92–97
[2023-04-17] MEDS: ACETAMINOPHEN 325 MG TAB PO PRN (02:51)
[2023-04-17] MEDS: INSULIN HUMULIN R 100 UNIT/ML 3ML SQ SCH ×4 (05:27→19:56)
[2023-04-17 05:42] LABS: POTASSIUM 3.2 mmol/L (3.5-5.1)
[2023-04-17] MEDS: POTASSIUM CHLORIDE 10% ELIXIR 20 MEQ/15 ML UDCUP PO PRN ×3 (05:55→17:17)
[2023-04-17] MEDS: LEVOTHYROXINE 75 MCG TABLET PO SCH (05:55)
[2023-04-17 08:11] LABS: MEAN CORPUSCULAR HEMOGLOBIN 30.6 pg (27.0-33.0); MEAN CORPUSCULAR VOLUME 92.7 fL (79-99); RED BLOOD CELL COUNT(AUTO) 2.48 MIL/uL (4.00-5.50); RED CELL DISTRIBUTION WIDTH 15.6 % (11.0-15.5); WHITE BLOOD COUNT (AUTO) 12.3 K/uL (4.8-10.8)
[2023-04-17 08:33] LABS: CREATININE 1.1 mg/dL (0.5-1.5); MAGNESIUM 1.8 mg/dL (1.80-2.40)
[2023-04-17] MEDS: EZETIMIBE 10 MG TAB PO SCH (09:46)
[2023-04-17] MEDS: AMIODARONE 200 MG TABLET PO SCH ×2 (09:46→20:36)
[2023-04-17] MEDS: ASPIRIN 81MG CHEW TAB PO SCH (09:47)
[2023-04-17] MEDS: LOSARTAN 25 MG TABLET PO SCH ×2 (09:47→20:35)
[2023-04-17] MEDS: FAMOTIDINE 20MG TAB PO SCH (09:47)
[2023-04-17] MEDS: FUROSEMIDE 20 MG TABLET PO SCH ×2 (09:48→17:15)
[2023-04-17] MEDS: METOPROLOL TARTRATE 50 MG TAB PO SCH ×2 (09:48→20:35)
[2023-04-17] MEDS: BALSAM PERU/CASTOR OIL 60 GM TUBE TP SCH ×3 (09:50→20:38)
[2023-04-17] MEDS: ACETAMINOPHEN 500 MG TABLET PO SCH ×2 (09:50→20:36)
[2023-04-17] MEDS: CLOPIDOGREL 75MG TAB PO SCH (09:50)
[2023-04-17] MEDS: ENOXAPARIN SODIUM 30 MG/0.3 ML SQ SCH (09:55)
[2023-04-17] MEDS: MAGNESIUM 2GM PREMIX 50ML 50 ML IV PRN (09:56)
[2023-04-17] MEDS: ONDANSETRON 4MG INJ IV PRN (10:01)
[2023-04-17] MEDS ORDERED: BENZOCAINE/MENTH/CETYLPYRD CL 1 EACH LOZENGE MM PRN (13:30)
[2023-04-17] MEDS ORDERED: LEVOTHYROXINE 25 MCG TABLET PO SCH (16:30)
[2023-04-17] MEDS: DULOXETINE HCL 30 MG CAP PO SCH (20:36)
[2023-04-17] MEDS: ATORVASTATIN 40 MG TABLET PO SCH (20:36)
[2023-04-18] VITALS (11 sets, daily range): BP systolic 90–106; BP diastolic 42–51; PULSE 56–90; RESP 18–20; TEMP 99.9; O2SAT 89–97
[2023-04-18] MEDS: INSULIN HUMULIN R 100 UNIT/ML 3ML SQ SCH ×4 (05:36→21:00)
[2023-04-18] MEDS: LEVOTHYROXINE 100 MCG TABLET PO SCH (05:39)
[2023-04-18] MEDS: DULOXETINE HCL 30 MG CAP PO SCH (08:26)
[2023-04-18] MEDS: LOSARTAN 25 MG TABLET PO SCH ×2 (08:27→22:00)
[2023-04-18] MEDS: ASPIRIN 81MG CHEW TAB PO SCH (08:27)
[2023-04-18] MEDS: ENOXAPARIN SODIUM 30 MG/0.3 ML SQ SCH (08:27)
[2023-04-18] MEDS: ACETAMINOPHEN 500 MG TABLET PO SCH ×2 (08:28→22:00)
[2023-04-18] MEDS: METOPROLOL TARTRATE 50 MG TAB PO SCH ×2 (08:28→22:02)
[2023-04-18] MEDS: EZETIMIBE 10 MG TAB PO SCH (08:28)
[2023-04-18] MEDS: AMIODARONE 200 MG TABLET PO SCH ×2 (08:28→22:02)
[2023-04-18] MEDS: FUROSEMIDE 20 MG TABLET PO SCH ×2 (08:29→17:39)
[2023-04-18] MEDS: CLOPIDOGREL 75MG TAB PO SCH (08:32)
[2023-04-18] MEDS: FAMOTIDINE 20MG TAB PO SCH (08:32)
[2023-04-18] MEDS ORDERED: DULOXETINE HCL 30 MG CAP PO SCH (09:00)
[2023-04-18] MEDS: BALSAM PERU/CASTOR OIL 60 GM TUBE TP SCH ×3 (09:00→22:01)
[2023-04-18] MEDS: ATORVASTATIN 40 MG TABLET PO SCH (22:01)
[2023-04-19 00:42] VITALS: BP 95/47; PULSE 57; RESP 18
[2023-04-19 00:58] LABS: BASOPHILS # (AUTO) 0.02 K/uL (0.00-0.20); BASOPHILS % (AUTO) 0.2 % (0.0-5.0); EOSINOPHILS # (AUTO) 0.28 K/uL (0.00-0.70); EOSINOPHILS % (AUTO) 2.4 % (0.0-8.0); HEMATOCRIT 21.7 % (36-48); IMMATURE GRANULOCYTE ABSOLUTE 0.07 K/uL (0-1); LYMPHOCYTES # (AUTO) 1.4 K/uL (1.0-4.8); MEAN CORPUSCULAR HEMOGLOBIN 30.5 pg (27.0-33.0); MEAN CORPUSCULAR HGB CONC 33.6 g/dL (32.0-36.0); MEAN CORPUSCULAR VOLUME 90.8 fL (79-99); MONOCYTES # (AUTO) 0.8 K/uL (0.1-1.0); MONOCYTES % (AUTO) 6.7 % (3.0-13.0); NEUTROPHILS % (AUTO) 78.1 % (40.0-77.0); PLATELET COUNT (AUTO) 352 K/uL (130-400); RED BLOOD CELL COUNT(AUTO) 2.39 MIL/uL (4.00-5.50); RED CELL DISTRIBUTION WIDTH 15.5 % (11.0-15.5); WHITE BLOOD COUNT (AUTO) 11.6 K/uL (4.8-10.8)
[2023-04-19 01:05] LABS: ALANINE AMINOTRANSFERASE 36 U/L (12-78); ALBUMIN 2.1 g/dL (3.5-5.0); ASPARTATE AMINOTRANSFERASE 45 U/L (10-37); BILIRUBIN,TOTAL 0.5 mg/dL (0.2-1.0); CARBON DIOXIDE 29 mmol/L (21-32); CHLORIDE 101 mmol/L (101-111); CREATININE 1.2 mg/dL (0.5-1.5); GLOMERULAR FILTR. RATE CALC 47 mL/min (>90); GLUCOSE,RANDOM 105 mg/dL (70-105); SODIUM SERUM 138 mmol/L (136-145); TOTAL PROTEIN, SERUM 5.6 g/dL (6.0-8.3); UREA NITROGEN, BLOOD 12 mg/dL (7-18)
[2023-04-19 01:10] LABS: B-TYPE NATRIURETIC PEPTIDE 744 pg/mL (0-100)
[2023-04-19] MEDS: POTASSIUM CHLORIDE 10% ELIXIR 20 MEQ/15 ML UDCUP PO PRN ×2 (01:23→01:26)
[2023-04-19] MEDS: MAGNESIUM 2GM PREMIX 50ML 50 ML IV PRN (01:24)
[2023-04-19 02:13] LABS: T4 (THYROXINE) 9.5 ug/dL (4.7-13.3)
[2023-04-19 03:55] VITALS: BP 105/52; PULSE 59; RESP 18
[2023-04-19 06:10] LABS: MAGNESIUM 2.4 mg/dL (1.80-2.40); POTASSIUM 4.1 mmol/L (3.5-5.1)
[2023-04-19] MEDS: INSULIN HUMULIN R 100 UNIT/ML 3ML SQ SCH ×2 (06:12→11:30)
[2023-04-19] MEDS: LEVOTHYROXINE 100 MCG TABLET PO SCH (06:22)
[2023-04-19 07:42] LABS: ABG BASE EXCESS 1.9 mmol/L (-2.0-3.0); ABG HCO3 24.4 mmol/L (21.0-28.0); ABG OXYGEN SATURATION 94.4 % (95.0-99.0); ABG PCO2 32 mmHg (32-45); ABG PH 7.496 (7.35-7.450); PO2, ARTERIAL BG 64.5 mmHg (83.0-108.0); VENT MODE, BG NC (ROOM AIR)
[2023-04-19 07:45] VITALS: PULSE 88; RESP 20; O2SAT 96
[2023-04-19 08:00] VITALS: BP 120/59; PULSE 84; RESP 16
[2023-04-19 08:10] VITALS: O2SAT 97
[2023-04-19] MEDS: LOSARTAN 25 MG TABLET PO SCH (08:12)
[2023-04-19] MEDS: ASPIRIN 81MG CHEW TAB PO SCH (08:12)
[2023-04-19] MEDS: FUROSEMIDE 20 MG TABLET PO SCH (08:15)
[2023-04-19] MEDS: METOPROLOL TARTRATE 50 MG TAB PO SCH (08:16)
[2023-04-19] MEDS: AMIODARONE 200 MG TABLET PO SCH (08:16)
[2023-04-19] MEDS: CLOPIDOGREL 75MG TAB PO SCH (08:16)
[2023-04-19] MEDS: FAMOTIDINE 20MG TAB PO SCH (08:16)
[2023-04-19] MEDS: ACETAMINOPHEN 500 MG TABLET PO SCH (08:17)
[2023-04-19] MEDS: EZETIMIBE 10 MG TAB PO SCH (08:17)
[2023-04-19] MEDS: DULOXETINE HCL 30 MG CAP PO SCH (08:24)
[2023-04-19] MEDS: BALSAM PERU/CASTOR OIL 60 GM TUBE TP SCH (08:26)
[2023-04-19] MEDS: ENOXAPARIN SODIUM 30 MG/0.3 ML SQ SCH (08:28)
[2023-04-19] MEDS ORDERED: DULOXETINE HCL 30 MG CAP PO SCH ×2 (09:00)
[2023-04-19 12:00] VITALS: BP 82/56; PULSE 58; RESP 16
== END 2023-04-19 15:13 | DRG 235 ==
LOC: DAHIP 04-08 09:53 → 2CV 04-08 15:42 → EDSTATUS 04-08 16:00 → 2BH 04-10 16:21 → 2DH 04-13 13:14
PROVIDERS: ADMIT Thoracic Surgery (Cardiothoracic Vascular Surgery); ATTEND Thoracic Surgery (Cardiothoracic Vascular Surgery)
PROC: 5A02210 Assistance with Cardiac Output using Balloon Pump, Continuous (ICD-10-PCS; 2023-04-08)
PROC: 5A1221Z Performance of Cardiac Output, Continuous (ICD-10-PCS; 2023-04-08)
PROC: 0BH17EZ Insertion of Endotracheal Airway into Trachea, Via Natural or Artificial Opening (ICD-10-PCS; 2023-04-08)
PROC: 5A1935Z Respiratory Ventilation, Less than 24 Consecutive Hours (ICD-10-PCS; 2023-04-08)
PROC: 02100Z9 Bypass Coronary Artery, One Artery from Left Internal Mammary, Open Approach (ICD-10-PCS; principal; 2023-04-08 12:11)
PROC: 021109W Bypass Coronary Artery, Two Arteries from Aorta with Autologous Venous Tissue, Open Approach (ICD-10-PCS; 2023-04-08 12:11)
PROC: 06BQ4ZZ Excision of Left Saphenous Vein, Percutaneous Endoscopic Approach (ICD-10-PCS; 2023-04-08 12:11)
PROC: 0PS004Z Reposition Sternum with Internal Fixation Device, Open Approach (ICD-10-PCS; 2023-04-08 12:11)
PROC: 5A09357 Assistance with Respiratory Ventilation, Less than 24 Consecutive Hours, Continuous Positive Airway Pressure (ICD-10-PCS; 2023-04-09)
PROC: 5A09357 Assistance with Respiratory Ventilation, Less than 24 Consecutive Hours, Continuous Positive Airway Pressure (ICD-10-PCS; 2023-04-11)
DX: I21.19 ST elevation (STEMI) myocardial infarction involving other coronary artery of inferior wall (principal); G93.41 Metabolic encephalopathy; I46.2 Cardiac arrest due to underlying cardiac condition; I49.01 Ventricular fibrillation; J96.01 Acute respiratory failure with hypoxia; R57.0 Cardiogenic shock; D62 Acute posthemorrhagic anemia; E46 Unspecified protein-calorie malnutrition; E87.1 Hypo-osmolality and hyponatremia; F05 Delirium due to known physiological condition; I13.0 Hypertensive heart and chronic kidney disease with heart failure and stage 1 through stage 4 chronic kidney disease, or unspecified chronic kidney disease; I69.354 Hemiplegia and hemiparesis following cerebral infarction affecting left non-dominant side; I25.10 Atherosclerotic heart disease of native coronary artery without angina pectoris; E78.00 Pure hypercholesterolemia, unspecified; E03.9 Hypothyroidism, unspecified; F60.0 Paranoid personality disorder; D69.6 Thrombocytopenia, unspecified; E05.90 Thyrotoxicosis, unspecified without thyrotoxic crisis or storm; F41.9 Anxiety disorder, unspecified; G62.9 Polyneuropathy, unspecified; I35.8 Other nonrheumatic aortic valve disorders; I50.9 Heart failure, unspecified; N18.30 Chronic kidney disease, stage 3 unspecified; Z79.01 Long term (current) use of anticoagulants; Z79.82 Long term (current) use of aspirin; Z79.899 Other long term (current) drug therapy; Z83.3 Family history of diabetes mellitus; Z87.891 Personal history of nicotine dependence; Z68.23 Body mass index [BMI] 23.0-23.9, adult
CPT/HCPCS: 36415; 36600; 71045; 80048; 80053; 80061; 82306; 82330; 82435; 82803; 82947; 82948; 83036; 83605; 83735; 83880; 84100; 84132; 84295; 84436; 84443; 84481; 85007; 85018; 85025; 85027; 85347; 85610; 85730; 86850; 86900; 86901; 86923; 87081; 87641; 92950; 93005; 93306; 93312; 93880; 94002; 94003; 94010; 94150; 94660; A7048; G0378; J0171; J0282; J0583; J0610; J0690; J1644; J1650; J1815; J1940; J2001; J2250; J2270; J2405; J2440; J2704; J2720; J3010; J3475; J3480; J3490; J7030; J7040; J7050; J7060; P9045; Q9967; A4215; A4221; A4222; A4223; A4315; A4452; A4649; A4663; A4930; A6204; A6219; A6260; A7040; A9900; C1713; C1776; G0168

== ENCOUNTER → 2023-05-03 | Outpatient (CLI) | payer OTHER ==
[2023-05-03 16:15] LABS: BASOPHILS # (AUTO) 0.04 K/uL (0.00-0.20); BASOPHILS % (AUTO) 0.6 % (0.0-5.0); EOSINOPHILS # (AUTO) 0.33 K/uL (0.00-0.70); EOSINOPHILS % (AUTO) 5.2 % (0.0-8.0); IMMATURE GRANULOCYTE ABSOLUTE 0.01 K/uL (0-1); LYMPHOCYTES # (AUTO) 1.7 K/uL (1.0-4.8); LYMPHOCYTES % (AUTO) 26.3 % (21.0-51.0); MEAN CORPUSCULAR HEMOGLOBIN 31.1 pg (27.0-33.0); MEAN CORPUSCULAR HGB CONC 31.8 g/dL (32.0-36.0); MEAN CORPUSCULAR VOLUME 97.9 fL (79-99); MONOCYTES # (AUTO) 0.6 K/uL (0.1-1.0); NEUTROPHILS # (AUTO) 3.6 K/uL (1.8-7.7); NEUTROPHILS % (AUTO) 57.7 % (40.0-77.0); PLATELET COUNT (AUTO) 354 K/uL (130-400); RED BLOOD CELL COUNT(AUTO) 2.86 MIL/uL (4.00-5.50); RED CELL DISTRIBUTION WIDTH 18.6 % (11.0-15.5); WHITE BLOOD COUNT (AUTO) 6.3 K/uL (4.8-10.8)
[2023-05-03 16:26] LABS: INR 0.95 (0.85-1.15); PROTHROMBIN TIME 11.1 SEC (9.6-11.6)
[2023-05-03 16:27] LABS: CREATININE 1.2 mg/dL (0.5-1.5); PARTIAL THROMBOPLASTIN TIME 28.9 SEC (26.3-35.5); POTASSIUM 4.8 mmol/L (3.5-5.1)
== END | disposition home or self-care (01) ==
LOC: LAB 15:22
PROVIDERS: ATTEND Internal Medicine Cardiovascular Disease
DX: I10 Essential (primary) hypertension (principal); I35.0 Nonrheumatic aortic (valve) stenosis; R07.9 Chest pain, unspecified
CPT/HCPCS: 36415; 80048; 85025; 85610; 85730

== ENCOUNTER → 2023-09-06 | Outpatient (CLI) | payer OTHER | END | disposition home or self-care (01) | LOC: SHCH 08:07 | PROVIDERS: ATTEND Internal Medicine Cardiovascular Disease | DX: I08.3 Combined rheumatic disorders of mitral, aortic and tricuspid valves (principal); I10 Essential (primary) hypertension | CPT/HCPCS: 93306 ==

== ENCOUNTER → 2023-10-18 | Outpatient (CLI) | payer OTHER ==
[2023-10-18] MEDS: REGADENOSON 0.4 MG/5 ML PF SYG IVP ONE (14:44)
== END | disposition home or self-care (01) ==
LOC: SHCH 08:31
PROVIDERS: ATTEND Internal Medicine Cardiovascular Disease
DX: I47.20 Ventricular tachycardia, unspecified (principal); R51.9 Headache, unspecified; R10.9 Unspecified abdominal pain; R07.9 Chest pain, unspecified
CPT/HCPCS: 78452; 93017; J2785; A9500 ×2; 96374

== ENCOUNTER → 2024-03-13 | Outpatient (CLI) | payer OTHER | END | disposition home or self-care (01) | LOC: RAH 10:03 | PROVIDERS: ATTEND Internal Medicine Critical Care Medicine | DX: M85.88 Other specified disorders of bone density and structure, other site (principal); M81.0 Age-related osteoporosis without current pathological fracture | CPT/HCPCS: 77080 ==